=== PATIENT | male | born 1955 | race Caucasian/White ===

== ENCOUNTER 2022-11-16 18:14 | Emergency (ER) | payer SELFPAY ==
[~2022-11-16] VITALS: Ht 172.7 cm; Wt 113.0 kg
[2022-11-16 18:29] VITALS: BP 139/72
== END 2022-11-16 19:23 | disposition left against medical advice (07) ==
LOC: ER 18:14
DX: Z53.21 Procedure and treatment not carried out due to patient leaving prior to being seen by health care provider (principal)
CPT/HCPCS: 93005; 99281